=== PATIENT | female | born 1940 | race Caucasian/White ===

== ENCOUNTER 2017-10-01 08:51 | Day surgery (SDC) | payer MEDICARE, BC ==
[2017-09-29 15:05] VITALS: BMI 31.6
[~2017-10-01 08:51] MED LIST: LACTATED RINGERS 1,000 ML IV SCH
[2017-10-01 10:23] VITALS: RESP 16; TEMP 98.7
[2017-10-01] MEDS ORDERED: LIDOCAINE 1% 20 ML VIAL (10MG/ML) FOR IV START INTRADERMA ONE (10:23)
[2017-10-01] MEDS ORDERED: PROPOFOL 10 MG/ML 20 ML VIAL IV ONE (10:24)
--- NOTE | 2017-10-01 10:48 | P.PCN ---
Date of Procedure: 10/01/17 Procedure(s) Performed: BRIEF HISTORY: Patient is a 77-year-old pleasant female, scheduled for an elective colonoscopy as a part of value should of prior history of colon polyps. Her last colonoscopy was in 2011 and was [address] Winston at [facility]. PROCEDURE PERFORMED: Colonoscopy. PREOPERATIVE DIAGNOSIS: History of colon polyps. IV sedation per Anesthesia. PROCEDURE: After informed consent was obtained, the patient, was brought into the endoscopy unit. IV sedation was administered by Anesthesia under continuous monitoring. Digital rectal examination was normal. Initially the Olympus CF- 160 flexible video pediatric colonoscope was then inserted in the rectum, gradually advanced into the cecum with moderate to severe difficulty . Careful examination was performed as the scope was gradually being withdrawn. Ileocecal valve and the appendiceal orifice were visualized and appeared normal. Prep was excellent. Mucosa of the cecum, ascending colon, transverse colon, descending colon, sigmoid colon, and rectum appeared normal. Moderate sigmoid IV closest seen. Retroflexion was performed in the rectum and no lesions were seen. The patient tolerated the procedure well. IMPRESSION: Normal-appearing colon from rectum to cecum with no evidence of choledochal neoplasia . Scattered sigmoidal discloses. RECOMMENDATIONS: Findings of this examination were discussed with the patient as well as her family. She was advised to be on a high-fiber diet .
[2017-10-01 11:18] VITALS: BP 127/78; PULSE 65
== END 2017-10-01 11:37 | disposition home or self-care (01) ==
LOC: ORWHC2ENDO 08:51
PROVIDERS: ATTEND Internal Medicine Gastroenterology
DX: Z12.11 Encounter for screening for malignant neoplasm of colon (principal); K57.30 Diverticulosis of large intestine without perforation or abscess without bleeding; Z86.010 Personal history of colon polyps; E07.9 Disorder of thyroid, unspecified; K21.9 Gastro-esophageal reflux disease without esophagitis; Z85.3 Personal history of malignant neoplasm of breast; Z79.890 Hormone replacement therapy; Z79.899 Other long term (current) drug therapy
CPT/HCPCS: J2704; G0105; 45378